=== PATIENT | male | born 1955 | race Hispanic/Latino ===

== ENCOUNTER 2017-11-04 08:27 | Inpatient (IN) | payer BC ==
[2017-11-04 08:33] VITALS: BMI 33.0
[2017-11-04] MEDS ORDERED: Albuterol-Ipratrop 3 mg / 0.5 (3 ml) UD IH STA (08:42)
--- NOTE | 2017-11-04 08:51 | ED PDOC ---
HPI: SOB/CHF/COPD Time Seen by Provider: 11/04/17 08:35 Chief Complaint (Nursing): Shortness Of Breath Chief Complaint (Provider): Shortness of breath History Per: Patient History/Exam Limitations: no limitations Onset/Duration Of Symptoms: Days (x2), Worse Since (onset) Current Symptoms Are (Timing): Still Present Associated Symptoms: Productive Cough (yellow sputum). denies: Fever, Chills Additional Complaint(s): Francisco Javier Rodriguez is a 61 year old male, with a past medical history of HTN and COPD, who was brought to the emergency department via EMS for a worsening shortness of breath, wheezing and productive cough with yellow sputum onset for x2 days. Patient reports no improvement of symptoms with inhalers at home. Patient received x2 nebulizer treatments in field by paramedics with mild improvement. Patient denies any fever, chills or other medical complaints. PMD: None provided. Past Medical History Reviewed: Historical Data, Nursing Documentation, Vital Signs Vital Signs: Last Vital Signs Temp 97.7 F 11/04/17 10:59 Pulse 72 11/04/17 10:59 Resp 19 11/04/17 10:59 BP 190/130 H 11/04/17 10:59 Pulse Ox 98 11/04/17 10:59 - Medical History PMH: COPD, HTN - Surgical History Surgical History: No Surg Hx - Family History Family History: States: No Known Family Hx - Home Medications Home Medications: Ambulatory Orders Medication Instructions Recorded Albuterol Sulfate [Ventolin Hfa] 1 puff IH BID 11/04/17 Aspirin [Ecotrin] 81 mg PO DAILY 11/04/17 Carvedilol [Coreg] 25 mg PO BID 11/04/17 Fluticasone/Vilanterol [Breo 1 each IH DAILY 11/04/17 Ellipta 100-25 Mcg INH] Losartan [Cozaar] 100 mg PO DAILY 11/04/17 Spironolactone [Aldactone] 25 mg PO DAILY 11/04/17 hydrALAZINE [hydralazine 50 mg PO DAILY 11/04/17 Hydrochloride] - Allergies Allergies/Adverse Reactions: Allergies Allergy/AdvReac Type Severity Reaction Status Date / Time No Known Allergies Allergy Verified 11/04/17 10:58 Review of Systems ROS Statement: Except As Marked, All Systems Reviewed And Found Negative Constitutional: Negative for: Fever, Chills Respiratory: Positive for: Cough (productive), Shortness of Breath, Sputum ( yellow), Wheezing Physical Exam - Reviewed Nursing Documentation Reviewed: Yes Vital Signs Reviewed: Yes - Physical Exam Appears: Positive for: Non-toxic Head Exam: Positive for: ATRAUMATIC, NORMOCEPHALIC Skin: Positive for: Normal Color, Warm, Dry Eye Exam: Positive for: Normal appearance Neck: Positive for: Painless ROM Cardiovascular/Chest: Positive for: Regular Rate, Rhythm. Negative for: Murmur Respiratory: Positive for: Decreased Breath Sounds, Wheezing (mild expiratory), Respiratory Distress (mild) Gastrointestinal/Abdominal: Positive for: Normal Exam, Soft. Negative for: Tenderness Back: Positive for: Normal Inspection. Negative for: L CVA Tenderness, R CVA Tenderness, Vertebral Tenderness Extremity: Positive for: Normal ROM (upper and lower extremities). Negative for : Calf Tenderness, Swelling Neurologic/Psych: Positive for: Alert, Oriented. Negative for: Motor/Sensory Deficits - Laboratory Results Result Diagrams: 11/04/17 09:10 11/04/17 09:10 - ECG O2 Sat by Pulse Oximetry: 99 (RA) Pulse Ox Interpretation: Normal Medical Decision Making Medical Decision Making: Initial Plan: --ABG Shock Panel --CMP --CBC w/ differential --D Dimer --Chest portable [RAD] --Duoneb 3 ml IH --SOLU-medrol 125 mg IVP --Blood culture --Peak flow pre/post Tx --Reevaluation Scribe Attestation: Documented by Roverto Christopher, acting as a scribe for Fernando Ballesteros MD Provider Scribe Attestation: All medical record entries made by the Scribe were at my direction and personally dictated by me. I have reviewed the chart and agree that the record accurately reflects my personal performance of the history, physical exam, medical decision making, and the department course for this patient. I have also personally directed, reviewed, and agree with the discharge instructions and disposition. Disposition - Clinical Impression Clinical Impression: COPD with acute bronchitis - Patient ED Disposition Is Patient to be Admitted: Yes - Disposition Disposition Time: 11:30 Condition: FAIR Forms: [facility] (Telugu) - Pt Status Changed To: Hospital Disposition Of: Inpatient - Admit Certification Admit to Inpatient:: After my assessment, the patient will require hospitalization for at least two midnights. This is because of the severity of symptoms shown, intensity of services needed, and/or the medical risk in this patient being treated as an outpatient. - POA Present On Arrival: None
[2017-11-04] MEDS ORDERED: Albuterol-Ipratrop 3 mg / 0.5 (3 ml) UD ONE (08:54)
[2017-11-04 09:07] LABS: ABG ALLEN TEST YES; ARTERIAL BLOOD GAS HCO3 26.6 mmol/L (21-28); ARTERIAL BLOOD GAS O2 SAT 100.1 % (95-98); ARTERIAL BLOOD GAS PCO2 35 mm/Hg (35-45); ARTERIAL BLOOD GAS PH 7.47 (7.35-7.45); ARTERIAL BLOOD GAS PO2 91 mm/Hg (80-100); ARTERIAL BLOOD GAS TCO2 26.6 mmol/L (22-28)
[2017-11-04 09:30] LABS: BASO % 0.5 % (0.0-2.0); EOS # 0.2 K/uL (0.0-0.7); EOS % 3.2 % (0.0-4.0); HEMOGLOBIN 14.3 g/dL (12.0-18.0); LYMPH # 1.1 K/uL (1.0-4.3); MEAN CELL VOLUME 91.2 fl (80.0-94.0); MEAN CORPUSCULAR HEMOGLOBIN 30.8 pg (27.0-31.0); MEAN CORPUSCULAR HGB CONC 33.7 g/dL (33.0-37.0); MEAN PLATELET VOLUME 8.9 fl (7.2-11.7); MONO # 0.8 K/uL (0.0-0.8); MONO % 11.3 % (0.0-10.0); NEUT # 5.1 K/uL (1.8-7.0); NRBC % 0.1 % (0.0-0.0); RBC 4.65 Mil/uL (4.40-5.90); RED CELL DISTRIBUTION WIDTH 15.2 % (11.5-14.5); WHITE BLOOD COUNT 7.3 K/uL (4.8-10.8)
[2017-11-04 09:31] LABS: ALT/SGPT 30 U/L (21-72); AST/SGOT 20 U/L (17-59); BLOOD UREA NITROGEN 18 mg/dl (9-20); GFR AFRICAN-AMERICAN > 60; GFR NON-AFRICAN AMERICAN > 60
--- NOTE | 2017-11-04 10:29 | RAD ---
HISTORY: cough COMPARISON: No prior. FINDINGS: LUNGS: No active pulmonary disease. PLEURA: No significant pleural effusion identified, no pneumothorax apparent. CARDIOVASCULAR: Cardiomegaly. No evidence of acute, significant cardiovascular disease. OSSEOUS STRUCTURES: No significant abnormalities. VISUALIZED UPPER ABDOMEN: Normal. OTHER FINDINGS: None. IMPRESSION: No active disease.
[2017-11-04] MEDS ORDERED: Potassium Chloride 20 mEq ER Tab PO ONE ×2 (11:26→11:33)
[2017-11-04] MEDS ORDERED: cefTRIAXone (Rocephin) 1 gm Inj ONE (11:34)
[2017-11-04] MEDS ORDERED: Albuterol-Ipratrop 3 mg / 0.5 (3 ml) UD INH SCH (14:00)
[2017-11-04] MEDS ORDERED: Pneumococcal 23-Valent Vaccine IM ONE (16:20)
[2017-11-04] MEDS ORDERED: methylPREDNISolone 60 MG in Sodium Chloride 0.9% 50 ML IVPB SCH (17:00)
--- NOTE | 2017-11-04 18:46 | CP.PCM.HP ---
Past Patient History - Past Social History Smoking Status: Former Smoker - CARDIAC Hx Cardiac Disorders: Yes Hx Hypertension: Yes Hx Peripheral Edema: Yes - PULMONARY Hx Respiratory Disorders: Yes Hx Bronchitis: Yes Hx Chronic Obstructive Pulmonary Disease (COPD): Yes Hx Respiratory Tract Infection: Yes - NEUROLOGICAL Hx Neurological Disorder: No - HEENT Hx HEENT Problems: No Hx Deafness: Yes - RENAL Hx Chronic Kidney Disease: No - MUSCULOSKELETAL/RHEUMATOLOGICAL Hx Falls: No - PSYCHIATRIC Hx Substance Use: No - SURGICAL HISTORY Hx Surgeries: Yes Hx Cardiac Catheterization: Yes Hx Coronary Stent: Yes Other/Comment: inguinal hernia, cardiac cath - ANESTHESIA Hx Anesthesia: Yes Hx Anesthesia Reactions: No Hx Malignant Hyperthermia: No Has any member of the family had a problem w/ anesthesia?: No Meds Allergies/Adverse Reactions: Allergies Allergy/AdvReac Type Severity Reaction Status Date / Time No Known Allergies Allergy Verified 11/04/17 10:58 Results - Vital Signs Recent Vital Signs: Last Vital Signs Temp 98.1 F 11/04/17 15:40 Pulse 75 11/04/17 16:06 Resp 20 11/04/17 16:06 BP 158/90 H 11/04/17 15:40 Pulse Ox 97 11/04/17 15:40 - Labs Result Diagrams: 11/04/17 09:10 11/04/17 09:10 Labs: Laboratory Results - last 24 hr 11/04/17 11/04/17 11/04/17 09:01 09:10 09:10 WBC 7.3 RBC 4.65 Hgb 14.3 Hct 42.4 MCV 91.2 MCH 30.8 MCHC 33.7 RDW 15.2 H Plt Count 179 MPV 8.9 Neut % (Auto) 70.0 Lymph % (Auto) 15.0 L [place] % (Auto) 11.3 H Eos % (Auto) 3.2 Baso % (Auto) 0.5 Neut # (Auto) 5.1 Lymph # (Auto) 1.1 [place] # (Auto) 0.8 Eos # (Auto) 0.2 Baso # (Auto) 0.0 D-Dimer, Quantitative pCO2 35 pO2 91 HCO3 26.6 ABG pH 7.47 H ABG Total CO2 26.6 ABG O2 Saturation 100.1 H ABG Base Excess 2.1 Paulino Test Yes ABG Potassium 2.9 L A-a O2 Difference 115.0 Sodium 140.0 143 Chloride 107.0 104 Glucose 109 Lactate 1.2 FiO2 35.0 Potassium 3.3 L Carbon Dioxide 25 Anion Gap 17 BUN 18 Creatinine 1.0 Est GFR ( Amer) > 60 Est GFR (Non-Af Amer) > 60 Random Glucose 107 Calcium 9.0 Total Bilirubin 0.9 AST 20 ALT 30 Alkaline Phosphatase 74 Total Protein 7.9 Albumin 4.0 Globulin 3.9 Albumin/Globulin Ratio 1.0 Arterial Blood Potassium 2.9 L 11/04/17 09:10 WBC RBC Hgb Hct MCV MCH MCHC RDW Plt Count MPV Neut % (Auto) Lymph % (Auto) [place] % (Auto) Eos % (Auto) Baso % (Auto) Neut # (Auto) Lymph # (Auto) [place] # (Auto) Eos # (Auto) Baso # (Auto) D-Dimer, Quantitative 199 pCO2 pO2 HCO3 ABG pH ABG Total CO2 ABG O2 Saturation ABG Base Excess Paulino Test ABG Potassium A-a O2 Difference Sodium Chloride Glucose Lactate FiO2 Potassium Carbon Dioxide Anion Gap BUN Creatinine Est GFR ( Amer) Est GFR (Non-Af Amer) Random Glucose Calcium Total Bilirubin AST ALT Alkaline Phosphatase Total Protein Albumin Globulin Albumin/Globulin Ratio Arterial Blood Potassium
[2017-11-04] MEDS: Albuterol-Ipratrop 3 mg / 0.5 (3 ml) UD INH SCH (19:01)
[2017-11-05] MEDS: Albuterol-Ipratrop 3 mg / 0.5 (3 ml) UD INH SCH ×7 (00:35→23:38)
[2017-11-05 05:07] LABS: BASO # 0.1 K/uL (0.0-0.2); BASO % 0.3 % (0.0-2.0); HEMOGLOBIN 14.5 g/dL (12.0-18.0); LYMPH % 6.5 % (20.0-40.0); MEAN CELL VOLUME 91.7 fl (80.0-94.0); MEAN CORPUSCULAR HEMOGLOBIN 30.9 pg (27.0-31.0); MEAN CORPUSCULAR HGB CONC 33.7 g/dL (33.0-37.0); MEAN PLATELET VOLUME 8.9 fl (7.2-11.7); MONO # 0.5 K/uL (0.0-0.8); MONO % 3.1 % (0.0-10.0); NEUT # 13.8 K/uL (1.8-7.0); NEUT % 90.1 % (50.0-75.0); PLATELET COUNT 215 K/uL (130-400); RED CELL DISTRIBUTION WIDTH 14.7 % (11.5-14.5); WHITE BLOOD COUNT 15.4 K/uL (4.8-10.8)
[2017-11-05 05:21] LABS: ALBUMIN 4.3 g/dL (3.5-5.0); ALT/SGPT 27 U/L (21-72); AST/SGOT 20 U/L (17-59); BLOOD UREA NITROGEN 30 mg/dl (9-20); CALCIUM 9.6 mg/dL (8.4-10.2); GFR AFRICAN-AMERICAN > 60; GFR NON-AFRICAN AMERICAN 52
[2017-11-05 07:34] LABS: ANISOCYTOSIS SLIGHT; BANDS 2 % (0-2); LYMPHOCYTE 8 % (20-50); METAMYELOCYTE 1 % (0-0); MONOCYTE 2 % (0-10); MYELOCYTE 1 % (0-0); NEUTROPHIL 85 % (42-75); PLATELET ESTIMATE NORMAL (NORMAL); REACTIVE LYMPHOCYTES 1 % (0-0); TOTAL CELLS COUNTED 100
[2017-11-05 07:35] LABS: GIANT PLATELETS PRESENT; TEARDROP CELLS SLIGHT
[2017-11-05] MEDS: Fluticasone-Salmeterol 100-50mcg Diskus IH SCH ×2 (08:57→18:21)
[2017-11-05] MEDS: Enoxaparin 40 mg Syringe SC SCH (08:57)
--- NOTE | 2017-11-05 22:46 | CP.PCM.PN ---
Subjective - Date & Time of Evaluation Date of Evaluation: 11/05/17 Time of Evaluation: 16:40 Objective - Vital Signs/Intake and Output Vital Signs (last 24 hours): Temp Pulse Resp BP Pulse Ox 97.7 F 93 H 18 195/106 H 98 11/05/17 20:02 11/05/17 20:02 11/05/17 20:02 11/05/17 20:02 11/05/17 20:02 - Medications Medications: Current Medications Albuterol/Ipratropium (Duoneb 3 Mg/0.5 Mg (3 Ml) Ud) 3 ml INH RQ4 [facility] Last Admin: 11/05/17 19:11 Dose: 3 ml Aspirin (Ecotrin) 81 mg PO DAILY [facility] Last Admin: 11/05/17 08:57 Dose: 81 mg Carvedilol (Coreg) 25 mg PO BID [facility] Last Admin: 11/05/17 18:20 Dose: 25 mg Enoxaparin Sodium (Lovenox) 40 mg SC DAILY [facility] PRN Reason: Protocol Last Admin: 11/05/17 08:57 Dose: Not Given Hydralazine HCl (Apresoline) 100 mg PO DAILY [facility] Last Admin: 11/05/17 18:18 Dose: Not Given Ceftriaxone Sodium 1 gm/ (Sodium Chloride) 100 mls @ 100 mls/hr IVPB DAILY [facility] PRN Reason: Protocol Last Admin: 11/05/17 20:39 Dose: 100 mls/hr Losartan Potassium (Cozaar) 100 mg PO DAILY [facility] Last Admin: 11/05/17 18:19 Dose: Not Given Methylprednisolone (Solu-Medrol) 60 mg IV Q8 [facility] Last Admin: 11/05/17 18:19 Dose: 60 mg Fluticasone/Salmeterol (Advair Diskus 100/50) 1 puff IH BID [facility] Last Admin: 11/05/17 18:21 Dose: 1 puff Spironolactone (Aldactone) 25 mg PO DAILY [facility] Last Admin: 11/05/17 18:18 Dose: Not Given - Labs Labs: 11/05/17 04:30 11/05/17 04:30
[2017-11-06] MEDS: Albuterol-Ipratrop 3 mg / 0.5 (3 ml) UD INH SCH ×2 (04:30→07:52)
[2017-11-06] MEDS: Fluticasone-Salmeterol 100-50mcg Diskus IH SCH ×2 (08:23→17:16)
[2017-11-06] MEDS: Enoxaparin 40 mg Syringe SC SCH (08:24)
--- NOTE | 2017-11-06 09:58 | CP.PCM.CON ---
History of Present Illness - History of Present Illness History of Present Illness: This 61-year-old man came into the emergency room when he developed profound shortness of breath and describes that he has been orthopneic during the night for a week before coming to the hospital. The patient gives history of being a hypertensive for number of years. In May of last year he had undergone a coronary angiogram and was told that there were no coronary lesions and did not need stenting. At the same time he was told of a "weak heart". The patient does admit to eating salty food every now and then. He used to be a 3 pack cigarette smoker until 30 years back. He denies any history of diabetes. Denies history of myocardial infarction. He indicates that there has been significant swelling of his legs for which he has taken 25 mg of Aldactone every now and then. The patient was also diagnosed as having COPD and was given a broncho-dilator spray but indicates that using this inhaler he has not found any significant relief. Physical examination shows a middle aged slightly overweight man who is anxious and being hospitalized. His telemetry shows steady sinus rhythm at physiological rates. His blood pressure was 170/100 mmHg. He was recently given a broncho-dilator spray containing albuterol. His jugular venous pressure was mildly elevated there was pitting edema over both lower extremities. The extremities were warm the nailbeds were pink there was no central or peripheral cyanosis. There was no clubbing. The apex was not palpable the first and second heart sounds are normal. There was a faint gallop. There were scattered rales at both bases. His electrocardiogram showed sinus rhythm with nonspecific ST-T changes and a pattern suggestive of dilated left atrium. His echocardiogram showed a mildly dilated left ventricle with moderately depressed systolic function and an estimated left ventricular ejection fraction of approximately 40%. It was evidence of mitral regurgitation also. The left atrium was enlarged. Patient's lab data shows a normal hemoglobin and hematocrit. His blood gases show of the O2 of only 91 mmHg while FiO2 was 35%. His electrolytes were normal. His BUN/creatinine were noted. His proBNP was elevated. Impression: Congestive cardiac failure probably representing hypertensive cardiomyopathy. I have withheld albuterol because it will further contributes to raising his blood pressure while attempts are being made to control it. I started him on intravenous diuretics in an attempt to give him relief as far as his symptoms of volume overload are concerned. I have explained to him the importance of salt restriction. Past Patient History - Past Social History Smoking Status: Former Smoker - CARDIAC Hx Cardiac Disorders: Yes Hx Hypertension: Yes Hx Peripheral Edema: Yes - PULMONARY Hx Respiratory Disorders: Yes Hx Bronchitis: Yes Hx Chronic Obstructive Pulmonary Disease (COPD): Yes Hx Respiratory Tract Infection: Yes - NEUROLOGICAL Hx Neurological Disorder: No - HEENT Hx HEENT Problems: No Hx Deafness: Yes - RENAL Hx Chronic Kidney Disease: No - MUSCULOSKELETAL/RHEUMATOLOGICAL Hx Falls: No - PSYCHIATRIC Hx Substance Use: No - SURGICAL HISTORY Hx Surgeries: Yes Hx Cardiac Catheterization: Yes Hx Coronary Stent: Yes Other/Comment: inguinal hernia, cardiac cath - ANESTHESIA Hx Anesthesia: Yes Hx Anesthesia Reactions: No Hx Malignant Hyperthermia: No Has any member of the family had a problem w/ anesthesia?: No Meds Allergies/Adverse Reactions: Allergies Allergy/AdvReac Type Severity Reaction Status Date / Time No Known Allergies Allergy Verified 11/04/17 10:58 - Medications Medications: Current Medications Aspirin (Ecotrin) 81 mg PO DAILY [facility] Last Admin: 11/06/17 08:24 Dose: 81 mg Carvedilol (Coreg) 25 mg PO BID [facility] Last Admin: 11/06/17 08:24 Dose: 25 mg Enoxaparin Sodium (Lovenox) 40 mg SC DAILY [facility] PRN Reason: Protocol Last Admin: 11/06/17 08:24 Dose: 40 mg Furosemide (Lasix) 40 mg IVP BID [facility] Hydralazine HCl (Apresoline) 100 mg PO DAILY [facility] Last Admin: 11/06/17 08:23 Dose: 100 mg Ceftriaxone Sodium 1 gm/ (Sodium Chloride) 100 mls @ 100 mls/hr IVPB DAILY [facility] PRN Reason: Protocol Last Admin: 11/05/17 20:39 Dose: 100 mls/hr Losartan Potassium (Cozaar) 100 mg PO DAILY [facility] Last Admin: 11/06/17 08:24 Dose: 100 mg Methylprednisolone (Solu-Medrol) 60 mg IV Q8 [facility] Last Admin: 11/06/17 08:25 Dose: 60 mg Fluticasone/Salmeterol (Advair Diskus 100/50) 1 puff IH BID [facility] Last Admin: 11/06/17 08:23 Dose: 1 puff Spironolactone (Aldactone) 25 mg PO DAILY [facility] Last Admin: 11/06/17 08:23 Dose: 25 mg Results - Vital Signs Recent Vital Signs: Last Vital Signs Temp 97.4 F L 11/06/17 07:49 Pulse 74 11/06/17 08:24 Resp 18 11/06/17 07:49 BP 174/104 H 11/06/17 08:24 Pulse Ox 96 11/06/17 07:49 - Labs Result Diagrams: 11/05/17 04:30 11/05/17 04:30 Labs: Laboratory Results - last 24 hr 11/06/17 08:20 NT-Pro-B Natriuret Pep 1930 H
--- NOTE | 2017-11-06 10:52 | CARD ---
APPROVED REPORT EXAM: Two-dimensional and M-mode echocardiogram with Doppler and color Doppler. Other Information Quality : GoodRhythm : NSR INDICATION Dyspnea 2D DIMENSIONS IVSd1.70 (0.7-1.1cm)LVDd5.94 (3.9-5.9cm) LVOT Diameter2.26 (1.8-2.4cm)PWd1.27 (0.7-1.1cm) IVSs2.18 (0.8-1.2cm)LVDs4.51 (2.5-4.0cm) FS (%) 24.1 %PWs1.96 (0.8-1.2cm) M-Mode DIMENSIONS Left Atrium (MM)5.47 (2.5-4.0cm)IVSd1.56 (0.7-1.1cm) Aortic Root2.66 (2.2-3.7cm)LVDd6.34 (4.0-5.6cm) Aortic Cusp Exc.1.88 (1.5-2.0cm)PWd1.34 (0.7-1.1cm) IVSs2.19 cmFS (%) 36 % LVDs4.03 (2.0-3.8cm)PWs2.16 cm Mitral Valve MV E Tsxeygbm49.0cm/sMV DECEL [id number] A Jcsighau49.6cm/s MV FOU42xhF/A ratio1.0MVA (PHT)3.85cm2 TDI Lateral E' Peak V8.88cm/sMedial E' Peak V7.01cm/sE/Lateral E'9.2 E/Medial E'11.7 Pulmonary Valve PV Peak Jizmiklf844.8cm/s LEFT VENTRICLE The left ventricle is normal size. There is moderate concentric left ventricular hypertrophy. Left ventricle systolic function is low normal. The LVEF is 50% There is normal LV segmental wall motion. Transmitral Doppler flow pattern is Grade II-pseudonormal filling dynamics. No left ventricle thrombus noted on this study. There is no ventricular septal defect visualized. There is no left ventricular aneurysm. There is no mass noted in the left ventricle. RIGHT VENTRICLE The right ventricle is normal size. There is normal right ventricular wall thickness. The right ventricular systolic function is normal. ATRIA The left atrium size is normal. The right atrium size is normal. The interatrial septum is intact with no evidence for an atrial septal defect. AORTIC VALVE The aortic valve is normal in structure. No aortic regurgitation is present. There is no aortic valvular stenosis. There is no aortic valvular vegetation. MITRAL VALVE The mitral valve is normal in structure. There is no evidence of mitral valve prolapse. There is no mitral valve stenosis. There is no mitral valve regurgitation noted. TRICUSPID VALVE The tricuspid valve is normal in structure. There is no tricuspid valve regurgitation noted. There is no tricuspid valve prolapse or vegetation. There is no tricuspid valve stenosis. PULMONIC VALVE The pulmonary valve is normal in structure. There is no pulmonic valvular regurgitation. There is no pulmonic valvular stenosis. GREAT VESSELS The aortic root is normal in size. The ascending aorta is normal in size. The IVC is normal in size and collapses >50% with inspiration. PERICARDIAL EFFUSION The pericardium appears normal. There is no pleural effusion. <Conclusion> Low Normal LVEF 50% Concentric LVH Pseudonormal Diastolic filling pattern( Impaired)
--- NOTE | 2017-11-06 15:25 | PQF GENQUE ---
Dr. Duane Payton, 2 queries as follows: Please specify the type and acuity of heart failure in your next progress notes : if known 1. TYPE: Combined systolic and diastolic Heart failure with reduced ejection fraction and diastolic dysfunction Diastolic HFpEF Systolic HFrEF Left heart failure Right heart failure Right heart failure due to left heart failure High Output failure End stage heart failure Other (please specify) Clinically unable to determine Unknown 2. ACUITY: Acute Chronic Acute on chronic Other (please specify) Clinically unable to determine Unknown 11/04 CXR: Impression: No active disease. 11/06 ProBNP:1930 11/06: Cardiology consult: There were scattered rales at both bases. His echocardiogram showed a mildly dilated left ventricle with moderately depressed systolic function and an estimated left ventricular ejection fraction of approximately 40%. It was evidence of mitral regurgitation also. The left atrium was enlarged. Impression: Congestive cardiac failure probably representing hypertensive cardiomyopathy 11/05 Cardiology consult ordered 11/04: coreg ordered, and on 11/06: Lasix IV BID ordered . This form is a permanent part of the medical record Clarification of your documentation is requested to better reflect the severity of illness and intensity of treatment of your patient. Indicators present [] Specify: [] [] Specify: [] [] Specify: [] [] Specify: [] Location in the medical record that reflects the above clinical findings: [] Treatment Provided: [] PHYSICIAN'S RESPONSE Patient has Congestive cardiac failure, left ventricular, systolic, acute on chronic. Based on your medical judgment of the clinical indicators outlined above please clarify the following: [] Practitioner response [] If unable to determine, please check the box, sign and date. Present On Admission (POA) Indicator: [] Present at the time of admission [] Not present at the time of admission [] Clinically Undetermined In responding to this query, please exercise your independent professional judgment. The fact that a question is asked does not imply that any particular answer is desired or expected. Thank you for your clarification on this documentation. If you have any questions please call. * Thank you, Saray Hendricks RN ext. #[phone] MTDD
--- NOTE | 2017-11-06 22:56 | CP.PCM.PN ---
Subjective - Date & Time of Evaluation Date of Evaluation: 11/06/17 Time of Evaluation: 11:30 Objective - Vital Signs/Intake and Output Vital Signs (last 24 hours): Temp Pulse Resp BP Pulse Ox 97.6 F 71 18 149/76 95 11/06/17 20:00 11/06/17 20:00 11/06/17 20:00 11/06/17 20:00 11/06/17 20:00 - Medications Medications: Current Medications Aspirin (Ecotrin) 81 mg PO DAILY [facility] Last Admin: 11/06/17 08:24 Dose: 81 mg Carvedilol (Coreg) 25 mg PO BID [facility] Last Admin: 11/06/17 17:16 Dose: 25 mg Enoxaparin Sodium (Lovenox) 40 mg SC DAILY [facility] PRN Reason: Protocol Last Admin: 11/06/17 08:24 Dose: 40 mg Furosemide (Lasix) 40 mg IVP BID [facility] Last Admin: 11/06/17 17:16 Dose: 40 mg Hydralazine HCl (Apresoline) 100 mg PO DAILY [facility] Last Admin: 11/06/17 08:23 Dose: 100 mg Ceftriaxone Sodium 1 gm/ (Sodium Chloride) 100 mls @ 100 mls/hr IVPB DAILY [facility] PRN Reason: Protocol Last Admin: 11/06/17 10:53 Dose: 100 mls/hr Losartan Potassium (Cozaar) 100 mg PO DAILY [facility] Last Admin: 11/06/17 08:24 Dose: 100 mg Methylprednisolone (Solu-Medrol) 60 mg IV Q8 [facility] Last Admin: 11/06/17 17:16 Dose: 60 mg Fluticasone/Salmeterol (Advair Diskus 100/50) 1 puff IH BID [facility] Last Admin: 11/06/17 17:16 Dose: 1 puff Spironolactone (Aldactone) 25 mg PO DAILY [facility] Last Admin: 11/06/17 08:23 Dose: 25 mg - Labs Labs: 11/05/17 04:30 11/05/17 04:30
[2017-11-07 06:37] LABS: ALB/GLOB RATIO 1.1 (1.0-2.1); ALBUMIN 4.1 g/dL (3.5-5.0); ALT/SGPT 38 U/L (21-72); AST/SGOT 20 U/L (17-59); BLOOD UREA NITROGEN 40 mg/dl (9-20); GFR AFRICAN-AMERICAN > 60; GFR NON-AFRICAN AMERICAN 52
[2017-11-07] MEDS: Fluticasone-Salmeterol 100-50mcg Diskus IH SCH ×2 (08:23→16:22)
[2017-11-07] MEDS: Enoxaparin 40 mg Syringe SC SCH (08:23)
--- NOTE | 2017-11-07 10:22 | CP.PCM.PN ---
Subjective - Date & Time of Evaluation Date of Evaluation: 11/07/17 Time of Evaluation: 09:25 - Subjective Subjective: Has diuresed profusely and reports much reliefe with dyspnoea HR 74 BPM, reg BP 156/94 mm Hg JVP still mildly elevated Pedal oedema less/ still + Bibasal rales+ BUN/Creatinin 40/1.4 mg% K+ normal GFR 52ml/min Low salt diet and regular weighing explained Responding well to Rx Objective - Vital Signs/Intake and Output Vital Signs (last 24 hours): Temp Pulse Resp BP Pulse Ox 97.5 F L 79 20 191/131 H 97 11/07/17 08:11 11/07/17 08:30 11/07/17 08:11 11/07/17 08:30 11/07/17 08:11 - Medications Medications: Current Medications Aspirin (Ecotrin) 81 mg PO DAILY [facility] Last Admin: 11/07/17 08:24 Dose: 81 mg Carvedilol (Coreg) 25 mg PO BID [facility] Last Admin: 11/07/17 08:25 Dose: 25 mg Enoxaparin Sodium (Lovenox) 40 mg SC DAILY [facility] PRN Reason: Protocol Last Admin: 11/07/17 08:23 Dose: 40 mg Furosemide (Lasix) 40 mg IVP BID [facility] Last Admin: 11/07/17 08:23 Dose: 40 mg Hydralazine HCl (Apresoline) 100 mg PO DAILY [facility] Last Admin: 11/07/17 08:30 Dose: 100 mg Ceftriaxone Sodium 1 gm/ (Sodium Chloride) 100 mls @ 100 mls/hr IVPB DAILY [facility] PRN Reason: Protocol Last Admin: 11/07/17 08:25 Dose: 100 mls/hr Losartan Potassium (Cozaar) 100 mg PO DAILY [facility] Last Admin: 11/07/17 08:23 Dose: 100 mg Methylprednisolone (Solu-Medrol) 60 mg IV Q8 [facility] Last Admin: 11/07/17 08:24 Dose: 60 mg Fluticasone/Salmeterol (Advair Diskus 100/50) 1 puff IH BID [facility] Last Admin: 11/07/17 08:23 Dose: 1 puff Spironolactone (Aldactone) 25 mg PO DAILY [facility] Last Admin: 11/07/17 08:24 Dose: 25 mg - Labs Labs: 11/05/17 04:30 11/07/17 05:00
[2017-11-07 15:59] VITALS: BP 167/89; PULSE 72; RESP 20; TEMP 97.5; O2SAT 97
[2017-11-07] MEDS ORDERED: MethylPREDNISolone 40 mg Vial IV SCH (17:00)
--- NOTE | 2017-11-08 09:26 | CP.PCM.DIS ---
Provider - Provider Date of Admission: 11/04/17 11:27 Attending physician: Elise Bentley MD Time Spent in preparation of Discharge (in minutes): 35 Hospital Course - Lab Results Lab Results: Micro Results 11/04/17 09:00 Blood Blood Culture - Preliminary NO GROWTH AFTER 3 DAYS Most Recent Lab Values WBC 15.4 K/uL (4.8-10.8) H D 11/05/17 04:30 RBC 4.70 Mil/uL (4.40-5.90) 11/05/17 04:30 Hgb 14.5 g/dL (12.0-18.0) 11/05/17 04:30 Hct 43.1 % (35.0-51.0) 11/05/17 04:30 MCV 91.7 fl (80.0-94.0) 11/05/17 04:30 MCH 30.9 pg (27.0-31.0) 11/05/17 04:30 MCHC 33.7 g/dL (33.0-37.0) 11/05/17 04:30 RDW 14.7 % (11.5-14.5) H 11/05/17 04:30 Plt Count 215 K/uL (130-400) 11/05/17 04:30 MPV 8.9 fl (7.2-11.7) 11/05/17 04:30 Neut % (Auto) 90.1 % (50.0-75.0) H 11/05/17 04:30 Lymph % (Auto) 6.5 % (20.0-40.0) L 11/05/17 04:30 Stark % (Auto) 3.1 % (0.0-10.0) 11/05/17 04:30 Eos % (Auto) 0.0 % (0.0-4.0) 11/05/17 04:30 Baso % (Auto) 0.3 % (0.0-2.0) 11/05/17 04:30 Neut # (Auto) 13.8 K/uL (1.8-7.0) H 11/05/17 04:30 Lymph # (Auto) 1.0 K/uL (1.0-4.3) 11/05/17 04:30 Stark # (Auto) 0.5 K/uL (0.0-0.8) 11/05/17 04:30 Eos # (Auto) 0.0 K/uL (0.0-0.7) 11/05/17 04:30 Baso # (Auto) 0.1 K/uL (0.0-0.2) 11/05/17 04:30 Neutrophils % (Manual) 85 % (42-75) H 11/05/17 04:30 Band Neutrophils % 2 % (0-2) 11/05/17 04:30 Lymphocytes % (Manual) 8 % (20-50) L 11/05/17 04:30 Reactive Lymphs % 1 % (0-0) H 11/05/17 04:30 Monocytes % (Manual) 2 % (0-10) 11/05/17 04:30 Metamyelocytes % 1 % (0-0) H 11/05/17 04:30 Myelocytes % 1 % (0-0) H 11/05/17 04:30 Platelet Estimate Normal (NORMAL) 11/05/17 04:30 Giant Platelets Present 11/05/17 04:30 Anisocytosis (manual) Slight 11/05/17 04:30 Macrocytosis (manual) Slight 11/05/17 04:30 Tear Drop Cells Slight 11/05/17 04:30 D-Dimer, Quantitative 199 ng/mlDDU (0-230) 11/04/17 09:10 pCO2 35 mm/Hg (35-45) 11/04/17 09:01 pO2 91 mm/Hg (80-100) 11/04/17 09:01 HCO3 26.6 mmol/L (21-28) 11/04/17 09:01 ABG pH 7.47 (7.35-7.45) H 11/04/17 09:01 ABG Total CO2 26.6 mmol/L (22-28) 11/04/17 09:01 ABG O2 Saturation 100.1 % (95-98) H 11/04/17 09:01 ABG Base Excess 2.1 mmol/L (-2.0-3.0) 11/04/17 09:01 Paulino Test Yes 11/04/17 09:01 ABG Potassium 2.9 mmol/L (3.6-5.2) L 11/04/17 09:01 A-a O2 Difference 115.0 mm/Hg 11/04/17 09:01 Sodium 140.0 mmol/L (132-148) 11/04/17 09:01 Chloride 107.0 mmol/L (98-107) 11/04/17 09:01 Glucose 109 mg/dL (75-110) 11/04/17 09:01 Lactate 1.2 mmol/L (0.7-2.1) 11/04/17 09:01 FiO2 35.0 % 11/04/17 09:01 Sodium 142 mmol/l (132-148) 11/07/17 05:00 Potassium 3.7 MMOL/L (3.6-5.0) 11/07/17 05:00 Chloride 102 mmol/L (98-107) 11/07/17 05:00 Carbon Dioxide 22 mmol/L (22-30) 11/07/17 05:00 Anion Gap 22 (10-20) H 11/07/17 05:00 BUN 40 mg/dl (9-20) H 11/07/17 05:00 Creatinine 1.4 mg/dl (0.8-1.5) 11/07/17 05:00 Est GFR ( Amer) > 60 11/07/17 05:00 Est GFR (Non-Af Amer) 52 11/07/17 05:00 Random Glucose 119 mg/dL (75-110) H 11/07/17 05:00 Calcium 9.0 mg/dL (8.4-10.2) 11/07/17 05:00 Magnesium 2.2 MG/DL (1.6-2.3) 11/05/17 04:30 Total Bilirubin 0.4 mg/dl (0.2-1.3) 11/07/17 05:00 AST 20 U/L (17-59) 11/07/17 05:00 ALT 38 U/L (21-72) 11/07/17 05:00 Alkaline Phosphatase 63 U/L (38-126) 11/07/17 05:00 Troponin I < 0.0120 ng/mL (0.00-0.120) 11/05/17 04:30 NT-Pro-B Natriuret Pep 1930 pg/ml (0-900) H 11/06/17 08:20 Total Protein 7.8 G/DL (6.3-8.2) 11/07/17 05:00 Albumin 4.1 g/dL (3.5-5.0) 11/07/17 05:00 Globulin 3.7 gm/dL (2.2-3.9) 11/07/17 05:00 Albumin/Globulin Ratio 1.1 (1.0-2.1) 11/07/17 05:00 TSH 3rd Generation 0.30 mIU/ML (0.46-4.68) L 11/05/17 04:30 Arterial Blood Potassium 2.9 mmol/L (3.6-5.2) L 11/04/17 09:01 Discharge Exam - Head Exam Head Exam: ATRAUMATIC, NORMOCEPHALIC Discharge Plan - Discharge Medications Prescriptions: Fluticasone/Salmeterol 100/50 [Advair Diskus 100/50] 1 puff IH BID #1 dsk Spironolactone [Aldactone] 25 mg PO DAILY #30 tab Carvedilol [Coreg] 25 mg PO BID #60 tab Losartan [Cozaar] 100 mg PO DAILY #30 tab Aspirin [Ecotrin] 81 mg PO DAILY #30 tabec Furosemide [Lasix] 40 mg PO DAILY #30 tablet Methylprednisolone [Medrol Dose Pack (21 tabs)] 4 mg PO DAILY #21 mg - Follow Up Plan Condition: FAIR Disposition: HOME/ ROUTINE Instructions: Acute Bronchitis, Adult (DC), Exacerbation of COPD (DC) Additional Instructions: follow up with pmd in 1 week follow up with on 11/13/17 Referrals: Salima Dyer MD [Family Provider] - Aaron Payton MD [Staff Provider] - Elise Bentley MD [Staff Provider] -
--- NOTE | 2017-11-08 12:30 | CARD ---
APPROVED REPORT EKG Measurement Heart [id number] <Conclusion> Normal sinus rhythm Possible Left atrial enlargement T wave abnormality, consider lateral ischemia Prolonged QT Abnormal ECG
== END 2017-11-07 18:00 | disposition home or self-care (01) | DRG 190 ==
LOC: H.ER 08:27 → H.ERHOLD 11:27 → H.TEL 13:00
PROVIDERS: ADMIT Internal Medicine; ATTEND Internal Medicine
PROC: 3E0F73Z Introduction of Anti-inflammatory into Respiratory Tract, Via Natural or Artificial Opening (ICD-10-PCS; principal; 2017-11-04)
PROC: 3E0234Z Introduction of Serum, Toxoid and Vaccine into Muscle, Percutaneous Approach (ICD-10-PCS; 2017-11-04)
DX: J44.0 Chronic obstructive pulmonary disease with (acute) lower respiratory infection (principal); I50.23 Acute on chronic systolic (congestive) heart failure; I43 Cardiomyopathy in diseases classified elsewhere; J20.9 Acute bronchitis, unspecified; I11.0 Hypertensive heart disease with heart failure; I34.0 Nonrheumatic mitral (valve) insufficiency; H91.90 Unspecified hearing loss, unspecified ear; Z23 Encounter for immunization; Z95.5 Presence of coronary angioplasty implant and graft; Z87.891 Personal history of nicotine dependence